=== PATIENT | female | born 1990 | race Caucasian/White ===

== ENCOUNTER 2017-06-02 10:15 | Emergency (ER) | payer OTHER ==
[~2017-06-02] VITALS: Ht 160 cm; Wt 64.4 kg
[2017-06-02 10:31] VITALS: BP 129/84
[2017-06-02] MEDS ORDERED: BIRTH CONTROL (10:40)
[2017-06-02] MEDS ORDERED: UNICOMPLEX M TA1 TA1 PO (10:41)
[2017-06-02 10:52] LABS: ABSOLUTE EOSINOPHILS 0.1 thou/uL (0.0-0.7); ABSOLUTE LYMPHOCYTES 1.9 thou/uL (0.8-5.3); ABSOLUTE MONOCYTES 0.4 thou/uL (0.0-1.2); BASOPHILS 0.3 %; HEMATOCRIT 40.1 % (37.0-47.0); HEMOGLOBIN 13.7 gm/dL (12.0-15.0); LYMPHOCYTES 25.4 %; MCH 30.9 pg (26.0-34.0); MCHC 34.1 g/dL (28.0-37.0); MCV 90.7 fL (80.0-100.0); MONOCYTES 5.6 %; MPV 8.3 fl. (7.2-11.1); NUCLEATED RBCS 0 /100WBC; PLATELET COUNT* 311 thou/uL (150-400); POLYS 67.7 %; RBC 4.42 mil/uL (4.20-5.00); RDW-CV 12.5 % (10.5-14.5); WBC 7.4 thou/uL (4.0-11.0)
[2017-06-02 11:06] LABS: ANION GAP 8 mmol/L (7-16); BUN 11 mg/dL (7-18); CALCIUM 8.8 mg/dL (8.5-10.1); CHLORIDE 107 mmol/L (98-107); CO2 27 mmol/L (21-32); CREATININE 0.8 mg/dL (0.6-1.3); GLUCOSE 99 mg/dL (70-99); POTASSIUM 4.2 mmol/L (3.5-5.1); SODIUM 142 mmol/L (136-145)
[2017-06-02 11:13] LABS: APTT 26.2 Seconds (25.0-31.3)
[2017-06-02 11:16] LABS: ALBUMIN 3.4 g/dL (3.4-5.0); ALKALINE PHOSPHATASE 50 U/L (46-116); CK-MB MASS < 0.5 ng/mL (<0.5-3.6); LIPASE 97 U/L (73-393); MAGNESIUM 2.1 mg/dL (1.8-2.4); NT-PRO BRAIN NAT PEPTIDE 196 pg/mL (<300); SGOT 11 U/L (15-37); SGPT 14 U/L (30-65); TOTAL BILIRUBIN 0.3 mg/dL (<0.1-1.0); TOTAL PROTEIN 7.3 g/dL (6.4-8.2); TROPONIN-I LEVEL <0.06 ng/mL (<0.06)
--- NOTE | 2017-06-02 14:49 | EKG ---
[place] [address] ELECTROCARDIOGRAM REPORT Name: VICKY VELASQUEZ Room: [facility]#: [id number] Admission: 06/02/17 Attend Phys: Discharge: Date of : 86 Report #: [id number] THIS REPORT FOR: //name// [facility] Test Date: 2017-06-02 Test Time: 10:22:49 Pat Name: VICKY VELASQUEZ Department: Room: Gender: F Sap Gr[employer] Security: [employer]ER[employer] DETECTIVE : 1990 Requested By: Miguel Elkins Order Number: [id number] MD: Antione Roman Measurements Intervals [place] Rate: 70 P: 33 [place]: 109 QRS: 80 QRSD: 87 T: 42 QT: 400 QTc: 432 Interpretive Statements Sinus rhythm Short [place] interval No previous ECG available for comparison Electronically Signed On 06-02-2017 14:49:06 CDT by Antione Roman [email or web address] <ELECTRONICALLY SIGNED> By: Antione Roman MD, [facility] 06/02/17 1449 1022 1022 Antione Roman MD, FACC /EPI
== END 2017-06-02 11:38 | disposition home or self-care (01) ==
LOC: M.ERS 10:15
PROVIDERS: Family Medicine
DX: R07.89 Other chest pain (principal)